=== PATIENT | female | born 1995 | race Caucasian/White ===

== ENCOUNTER 2017-02-05 02:25 | Emergency (ER) | payer SELFPAY ==
[~2017-02-05] VITALS: Ht 162.6 cm; Wt 85.0 kg
[2017-02-05 02:27] VITALS: BP 143/78; PULSE 94; RESP 16; TEMP 98.6; O2SAT 100
[2017-02-05] MEDS ORDERED: SODIUM CHLOR 0.9% 1000 ML INJ 1,000 ML IV SCH (02:39)
[2017-02-05] MEDS ORDERED: SODIUM CHLORIDE 0.9% FLUSH 10 ML FLUSH IV FLUSH PRN (02:45)
--- NOTE | 2017-02-05 02:48 | PD ---
HPI Chief Complaint: Abdominal Pain Time Seen by Provider: 02:33 Travel History International Travel<30 days: No Contact w/Intl Traveler<30days: No Traveled to known affect area: No History of Present Illness HPI C/O EPIG AREA BURNING SENSATION, 5/10, NONRAD, INTERMITTENTLY GOING ON FOR LAST 2-3 WEEKS. PFSH Social History Alcohol Use: No Tobacco Use: No Allergies-Medications (Allergen,Severity, Reaction): Coded Allergies: No Known Allergies (Verified Allergy, Unknown, 02/05/17) Reported Meds & Prescriptions Reported Meds & Active Scripts Active Ultram (Tramadol HCl) 50 Mg Tab 50 Mg PO Q6H PRN Carafate Liq (Sucralfate) 1 Gm/10 Ml Susp 1 Gm PO TID on empty stomach Review of Systems Except as stated in HPI: all other systems reviewed are Neg Gastrointestinal: Positive: Nausea, Abdominal Pain Physical Exam Narrative GENERAL: SKIN: Warm and dry. HEAD: Atraumatic. Normocephalic. EYES: Pupils equal and round. No scleral icterus. No injection or drainage. ENT: No nasal bleeding or discharge. Mucous membranes pink and moist. NECK: Trachea midline. No JVD. CARDIOVASCULAR: Regular rate and rhythm. RESPIRATORY: No accessory muscle use. Clear to auscultation. Breath sounds equal bilaterally. GASTROINTESTINAL: Abdomen soft, non-tender, nondistended. MUSCULOSKELETAL: Extremities without clubbing, cyanosis, or edema. No obvious deformities. NEUROLOGICAL: Awake and alert. No obvious cranial nerve deficits. Motor grossly within normal limits. Five out of 5 muscle strength in the arms and legs. Normal speech. PSYCHIATRIC: Appropriate mood and affect; insight and judgment normal. Data Data Last Documented VS Vital Signs Date Time Temp Pulse Resp B/P (MAP) Pulse Ox O2 Delivery O2 Flow Rate FiO2 02/05/17 04:42 02/05/17 02:58 96 Room Air 02/05/17 02:27 98.6 94 16 Orders Orders Complete Blood Count With Diff (02/05/17 02:39) Comprehensive Metabolic Panel (02/05/17 02:39) Lipase (02/05/17 02:39) Urinalysis - C+S If Indicated (02/05/17 02:39) Ct Abd/Pel W/O Iv Contrast (02/05/17 02:39) Iv Access Insert/Monitor (02/05/17 02:39) Ecg Monitoring (02/05/17 02:39) Oximetry (02/05/17 02:39) NPO (02/05/17 02:39) Sodium Chlor 0.9% 1000 Ml Inj (Ns 1000 M (02/05/17 02:39) Sodium Chloride 0.9% Flush (Ns Flush) (02/05/17 02:45) Ed Urine Pregnancytest Poc (02/05/17 02:39) Labs Laboratory Tests Test 02/05/17 02:00 02/05/17 02:55 Urine Color YELLOW Urine Turbidity HAZY Urine pH 5.5 Urine Specific [place] 1.033 Urine Protein TRACE mg/dL Urine Glucose (UA) NEG mg/dL Urine Ketones NEG mg/dL Urine Occult Blood SMALL Urine Nitrite NEG Urine Bilirubin NEG Urine Urobilinogen LESS THAN 2.0 MG/DL Urine Leukocyte Esterase LARGE Urine RBC 4 /hpf Urine WBC 7 /hpf Urine Squamous Epithelial Cells 2 /hpf Urine Transitional Epithelial Cells <1 /hpf Urine Mucus FEW /lpf Microscopic Urinalysis Comment CULT NOT INDICATED White Blood Count 10.8 TH/MM3 Red Blood Count 5.28 MIL/MM3 Hemoglobin 13.4 GM/DL Hematocrit 41.7 % Mean Corpuscular Volume 78.9 FL Mean Corpuscular Hemoglobin 25.4 PG Mean Corpuscular Hemoglobin Concent 32.2 % Red Cell Distribution Width 14.9 % Platelet Count 332 TH/MM3 Mean Platelet Volume 9.1 FL Neutrophils (%) (Auto) 56.4 % Lymphocytes (%) (Auto) 33.0 % Monocytes (%) (Auto) 7.4 % Eosinophils (%) (Auto) 1.9 % Basophils (%) (Auto) 1.3 % Neutrophils # (Auto) 6.1 TH/MM3 Lymphocytes # (Auto) 3.6 TH/MM3 Monocytes # (Auto) 0.8 TH/MM3 Eosinophils # (Auto) 0.2 TH/MM3 Basophils # (Auto) 0.1 TH/MM3 CBC Comment DIFF FINAL Differential Comment Blood Urea Nitrogen 21 MG/DL Creatinine 0.81 MG/DL Random Glucose 97 MG/DL Total Protein 8.7 GM/DL Albumin 3.9 GM/DL Calcium Level 9.2 MG/DL Alkaline Phosphatase 117 U/L Aspartate Amino Transf (AST/SGOT) 25 U/L Alanine Aminotransferase (ALT/SGPT) 26 U/L Total Bilirubin 0.2 MG/DL Sodium Level 139 MEQ/L Potassium Level 4.3 MEQ/L Chloride Level 105 MEQ/L Carbon Dioxide Level 27.5 MEQ/L Anion Gap 7 MEQ/L Estimat Glomerular Filtration Rate 91 ML/MIN Lipase 185 U/L MDM Medical Decision Making Medical Screen Exam Complete: Yes Emergency Medical Condition: Yes Medical Record Reviewed: Yes Differential Diagnosis DYSPEPSIA V GB DZ V LIVER DZ V PANCREATITIS Narrative Course UPON EVALUATION NO E/O PANCREATITIS, LIVER DZ, NOR ANY GB DZ ON IMAGING...DISCUSSED ALL FINDINGS WITH PATIENT AND WILL D/C Diagnosis Primary Impression: Dyspepsia Patient Instructions: Diet for Stomach Ulcers and Gastritis (ED), Gastritis (ED ), General Instructions Additional Instructions: YOU ARE ADVISED TO TAKE PRILOSEC OR NEXIUM OVERT THE COUNTER DAILY FOR THE NEXT 6MONTHS AND FOLLOW UP WITH A GI SPECIALIST Scripts Tramadol (Ultram) 50 Mg Tab 50 MG PO Q6H Y for PAIN, #20 TAB 0 Refills Prov: Aureliano Apple MD 02/05/17 Sucralfate Liq (Carafate Liq) 1 Gm/10 Ml Susp 1 GM PO TID for Duodenal ulcer, #900 ML 0 Refills on empty stomach Prov: Aureliano Apple MD 02/05/17 Disposition: 01 DISCHARGE HOME Condition: Stable Aureliano Apple MD Feb 05, 2017 02:48
[2017-02-05 02:58] VITALS: O2SAT 96
[2017-02-05 03:06] LABS: AUTOMATED NEUTROPHIL # 6.1 TH/MM3 (1.8-7.7); BASOPHIL # 0.1 TH/MM3 (0-0.2); BASOPHIL % 1.3 % (0.0-2.0); EOSINOPHIL # 0.2 TH/MM3 (0-0.4); EOSINOPHIL % 1.9 % (0.0-4.0); HEMATOCRIT 41.7 % (35.0-46.0); HEMO FLAGS DIFF FINAL; LYMPHOCYTE # 3.6 TH/MM3 (1.0-4.8); MEAN CELL VOLUME 78.9 FL (80.0-100.0); MEAN CORPUSCULAR HEMOGLOBIN 25.4 PG (27.0-34.0); MEAN CORPUSCULAR HGB CONC 32.2 % (32.0-36.0); MONO % 7.4 % (0.0-8.0); NEUT % 56.4 % (16.0-70.0); PLATELET COUNT 332 TH/MM3 (150-450); RED BLOOD COUNT 5.28 MIL/MM3 (4.00-5.30); RED CELL DISTRIBUTION WIDTH 14.9 % (11.6-17.2); WHITE BLOOD COUNT 10.8 TH/MM3 (4.0-11.0)
[2017-02-05 03:08] LABS: BLOOD, URINE SMALL (NEG); GLUCOSE,URINE NEG (NEG); KETONE, URINE NEG (NEG); MUCUS URINE FEW /lpf (OCC); NITRITE,URINE NEG (NEG); PH, URINE 5.5 (5.0-8.5); SQUAMOUS EPITHELIAL CELL URINE 2 /hpf (0-5); TRANSITIONAL EPI CELLS, URINE <1 /hpf; URINE COLOR YELLOW (YELLW/STRAW)
[2017-02-05 03:09] LABS: COMMENT (UR) CULT NOT INDICATED; CULTURE IF INDICATED CULT NOT INDICATED
[2017-02-05 03:26] LABS: ALKALINE PHOSPHATASE 117 U/L (45-117); TOTAL BILIRUBIN ADULT 0.2 MG/DL (0.2-1.0)
[2017-02-05 03:32] LABS: ALT (GPT) 26 U/L (9-42); ANION GAP 7 MEQ/L (5-15); AST (GOT) 25 U/L (16-38); BICARBONATE 27.5 MEQ/L (21.0-32.0); BLOOD UREA NITROGEN 21 MG/DL (7-18); CHLORIDE 105 MEQ/L (98-107); GLOMERULAR FILTRATION RATE 91 ML/MIN (>89); POTASSIUM 4.3 MEQ/L (3.5-5.1); SODIUM (NA) 139 MEQ/L (136-145)
--- NOTE | 2017-02-05 03:40 | RADRPT ---
EXAM DATE/TIME: 02/05/2017 03:10 [facility] COMPARISON: No previous studies available for comparison. INDICATIONS : Epigastric pain, nausea. ORAL CONTRAST: No oral contrast ingested. RADIATION DOSE: 28.03 CTDIvol (mGy) ; Patient body habitus MEDICAL HISTORY : None SURGICAL HISTORY : None. ENCOUNTER: Initial ACUITY: Acute PAIN SCALE: Unknown LOCATION: Epigastric TECHNIQUE: Volumetric scanning of the abdomen and pelvis was performed. Using automated exposure control and ad justment of the mA and/or kV according to patient size, radiation dose was kept as low as reasonably achievable to obtain optimal diagnostic quality images. DICOM format image data is available electro nically for review and comparison. FINDINGS: LOWER LUNGS: The visualized lower lungs are clear. LIVER: Homogeneous density without lesion. There is no dilation of the biliary tree. No calcified gallston es. SPLEEN: Normal size without lesion. PANCREAS: Within normal limits. KIDNEYS: Normal in size and shape. There is no mass, stone, or hydronephrosis. ADRENAL GLANDS: Within normal limits. VASCULAR: There is no aortic aneurysm. BOWEL/MESENTERY: The stomach, small bowel, and colon demonstrate no acute abnormality. There is no free intraperitone al air or fluid. ABDOMINAL WALL: Within normal limits. RETROPERITONEUM: There is no lymphadenopathy. BLADDER: No wall thickening or mass. REPRODUCTIVE: Within normal limits. INGUINAL: There is no lymphadenopathy or hernia. MUSCULOSKELETAL: Within normal limits for patient age. CONCLUSION: Normal examination. Toni Pierson MD on February 05, 2017 at 3:33 Board Certified Radiologist. This report was verified electronically.
[2017-02-05] MEDS ORDERED: CARA1SUS3 PO (03:48)
[2017-02-05] MEDS ORDERED: ULTR50TA5 PO (03:48)
== END 2017-02-05 04:42 | disposition home or self-care (01) ==
LOC: NEPE 02:25
DX: R10.13 Epigastric pain (principal)
CPT/HCPCS: 74176; 80053; 81001; 83690; 84703; 85025; 99285; J7030

== ENCOUNTER 2017-03-04 21:21 | Emergency (ER) | payer SELFPAY ==
[~2017-03-04] VITALS: Ht 157.5 cm; Wt 87.0 kg
[~2017-03-04 21:21] MED LIST: CARA1SUS3 PO; ULTR50TA5 PO
[2017-03-04 21:23] VITALS: BP 131/89; PULSE 106; RESP 15; TEMP 99.9; O2SAT 100
[2017-03-05] MEDS ORDERED: PRED-503 PO (00:50)
[2017-03-05] MEDS ORDERED: PENI500T PO (00:50)
--- NOTE | 2017-03-05 00:56 | PD ---
HPI Chief Complaint: Cold / Flu Symptoms Time Seen by Provider: 00:42 Travel History International Travel<30 days: No Contact w/Intl Traveler<30days: No Traveled to known affect area: No History of Present Illness HPI 21-year-old white female presents to emergency department with a complaint of sore throat 1-2 days. She states that she has had subjective fever and chills , headache, sore throat, difficulty swallowing, some nausea with an episode of vomiting yesterday, and general malaise. She denies any abdominal pain or diarrhea. No dysuria or frequency. Symptoms are moderate. Worse with swallowing. No alleviating factors. PFSH Past Medical History Medical History: Denies Significant Hx Tetanus Vaccination: < 5 Years ?: Not LMP: now Past Surgical History Surgical History: No Previous Surgery Social History Alcohol Use: No Tobacco Use: No Substance Use: No Allergies-Medications (Allergen,Severity, Reaction): Coded Allergies: No Known Allergies (Verified Allergy, Unknown, 03/04/17) Reported Meds & Prescriptions Reported Meds & Active Scripts Active Deltasone (Prednisone) 20 Mg Tab 20 Mg PO BID Penicillin V Potassium 500 Mg Tab 500 Mg PO Q12HR Ultram (Tramadol HCl) 50 Mg Tab 50 Mg PO Q6H PRN Carafate Liq (Sucralfate) 1 Gm/10 Ml Susp 1 Gm PO TID on empty stomach Review of Systems General / Constitutional: Positive: Fever, Chills Eyes: No: Visual changes HENT: No: Headaches Cardiovascular: No: Chest Pain or Discomfort Respiratory: No: Shortness of Breath Gastrointestinal: Positive: Nausea, Vomiting, No: Abdominal Pain Genitourinary: No: Dysuria Musculoskeletal: No: Pain Skin: No Rash Neurologic: No: Weakness Psychiatric: No: Depression Endocrine: No: Polydipsia Hematologic/Lymphatic: No: Easy Bruising Physical Exam Narrative GENERAL: Well-developed, well-nourished in no acute distress. Nontoxic appearing. HEAD: Normocephalic, atraumatic. EYES: Pupils equal round and reactive. Extraocular motions intact. No scleral icterus. No injection or drainage. ENT: TMs clear without erythema. The external auditory canals clear. Nose: clear . Posterior pharynx is erythematous and moist. Positive tonsillar edema without exudate. Patient has several ulcerative areas on the soft palate and tonsillar area. Uvula midline. Airway patent. NECK: Trachea midline.Supple, nontender, moves head freely. No central bony tenderness or spasm. Positive cervical and tonsillar adenopathy. CARDIOVASCULAR: Regular rate and rhythm without murmurs, gallops, or rubs. RESPIRATORY: Clear to auscultation. Breath sounds equal bilaterally. No wheezes , rales, or rhonchi. GASTROINTESTINAL: Abdomen soft, non-tender, nondistended. No hepato-splenomegaly , or palpable masses. No guarding. EXTREMITIES: No clubbing, cyanosis, or edema. No joint tenderness, effusion, or edema noted. BACK: Nontender without deformity or crepitance. No flank tenderness. Data Data Last Documented VS Vital Signs Date Time Temp Pulse Resp B/P (MAP) Pulse Ox O2 Delivery O2 Flow Rate FiO2 03/04/17 21:23 99.9 106 15 131/89 (103) 100 Room Air Orders Orders Penicillin V Potassium (Veetids) (03/05/17 01:00) Ed Discharge Order (03/05/17 00:51) MDM Medical Decision Making Medical Screen Exam Complete: Yes Emergency Medical Condition: Yes Medical Record Reviewed: Yes Differential Diagnosis MDM: High Differential diagnoses: Strep throat, viral pharyngitis, mono, peritonsillar abscess, retropharyngeal abscess, Hernando's angina Narrative Course Patient's exam is most consistent with a viral pharyngitis. I've agreed to give the patient Pen-Vee K. Patient is given Pen-Vee K 500 mg by mouth now. Diagnosis Primary Impression: Acute pharyngitis Qualified Codes: J02.9 - Acute pharyngitis, unspecified Patient Instructions: General Instructions Additional Instructions: Rest. Force fluids. Saltwater gargles. Tylenol and Advil. Benadryl and Maalox 50-50 suspension. Take 1/2 teaspoon swish and spit every 2 hours as needed for pain. Chloraseptic [place] Cepastat lozenge. Pen-Vee K and prednisone.. Follow-up with a primary care doctor in one week. Return to the ER if any problems. Med/Other Pt SpecificInfo: Prescription(s) given Scripts Prednisone (Deltasone) 20 Mg Tab 20 MG PO BID, #8 TAB 0 Refills Prov: Radha Mascorro DO 03/05/17 Penicillin V Potassium (Penicillin V Potassium) 500 Mg Tab 500 MG PO Q12HR for Infection, #20 TAB 0 Refills Prov: Radha Mascorro DO 03/05/17 Disposition: 01 DISCHARGE HOME Condition: Stable Toni Martinez Mar 05, 2017 00:56
[2017-03-05] MEDS ORDERED: PENICILLIN V POTASSIUM 500 MG TAB PO ONE (01:00)
== END 2017-03-05 01:39 | disposition home or self-care (01) ==
LOC: NEPD 21:21
DX: J02.9 Acute pharyngitis, unspecified (principal)
CPT/HCPCS: 99284